=== PATIENT | female | born 1950 | race Caucasian/White ===

== ENCOUNTER 2017-09-26 23:40 | Emergency (ER) | payer OTHER ==
--- NOTE | 2017-09-26 23:51 | EDPHY ---
H & P Time Seen by Provider: 09/26/17 23:41 HPI/ROS: HPI The patient presents with episode of ALOC which occurred just prior to arrival. The patient is brought in by paramedics. She called 911 after she awoke on the ground of her apartment. She does admit to drinking about a pt of hard alcohol earlier in the day and taking some of her medications, including trazodone. She says she was walking across her living room toward her computer after lying in bed sleeping for about 2-3 hours and then does not remember what happened. She then awoke on the ground. She denies any complaints currently. Paramedics report that she was unstable and could not walk without assistance out of her apartment. Blood glucose in the field was 150. The patient does have right-sided neck pain and lower back pain currently.. REVIEW OF SYSTEMS Constitutional: No fever, no chills. Eyes: No discharge. ENT: No sore throat. Cardiovascular: No chest pain, no palpitations. Respiratory: No cough, no shortness of breath. Gastrointestinal: No abdominal pain, no vomiting. Genitourinary: No hematuria. Musculoskeletal: No back pain. Skin: No rashes. Neurological: No headache. PMHx: Hypertension, hypothyroid, history of spinal stenosis Soc Hx: Lives in an apartment, previously worked for [employer], alcohol use PHYSICAL General Appearance: Alert, no distress Eyes: Pupils equal and round no pallor or injection ENT, Mouth: Mucous membranes moist Respiratory: There are no retractions, lungs are clear to auscultation Cardiovascular: Regular rate and rhythm Gastrointestinal: Abdomen is soft and non-tender, no masses, bowel sounds normal Neurological: A&O, moves all extremities Skin: Warm and dry, abrasion which is 2 cm to right elbow Musculoskeletal: Neck is supple, tender bilaterally throughout her cervical spine, she has midline lumbar spinal tenderness Extremities: symmetrical, full range of motion Psychiatric: Patient is oriented X 3, there is no agitation Source: Patient, EMS Exam Limitations: Intoxication - Personal History Tetanus Vaccine Date: 2 years ago - Medical/Surgical History Hx Asthma: No Hx Chronic Respiratory Disease: No Hx Diabetes: No Hx Cardiac Disease: No Hx Renal Disease: No Hx Cirrhosis: No Hx Alcoholism: No Hx HIV/AIDS: No Hx Splenectomy or Spleen Trauma: No Other PMH: HTN, hypothyroid, anxiety, esophageal ulcer, spinal stenosis w multiple back surgeries - Social History Smoking Status: Current every day smoker Constitutional: Initial Vital Signs Temperature (C) 36.6 C 09/26/17 23:48 Heart Rate 86 09/26/17 23:48 Respiratory Rate 16 09/26/17 23:48 Blood Pressure 178/112 H 09/26/17 23:48 O2 Sat (%) 96 09/26/17 23:48 O2 Delivery Mode Room Air Allergies/Adverse Reactions: No Known Allergies Allergy (Unverified 09/26/17 23:46) Home Medications: Medication Instructions Recorded Dexamethasone [Decadron 0.5 mg (*)] 0.25 mg PO DAILY 01/02/14 Hydroxyzine Pamoate [Vistaril] 25 mg PO HS 01/02/14 Levothyroxine [Synthroid 75 mcg 75 mcg PO DAILY 01/02/14 (*)] Ramipril [Altace 2.5mg (*)] 2.5 mg PO DAILY 01/02/14 Methylphenidate HCl [Ritalin 20mg 20 mg PO DAILY 03/25/14 (*)] traZODone 09/26/17 Medical Decision Making - Diagnostics EKG Interpretation: EKG: Complete interpretation has been separately recorded in the [employer] archive. Summary impression: Normal sinus rhythm with 1 PVC Imaging Results: CT C-spine shows no acute fracture, discussed with Dr. Witt of Radiology. Lumbar spine two view plain films show no obvious acute fracture, hardware in place, interpreted by me, radiology interpretation is pending. AP pelvis demonstrates no fracture, interpreted by me, radiology interpretation is pending. Imaging: I viewed and interpreted images myself Differential Diagnosis: This is a 66-year-old female with history of alcohol abuse who presents brought in by ambulance after a fall which occurred setting of alcohol intoxication. She was in bed, got up quickly and walked across the room and then awoke on the ground. She felt lightheaded before the episode. She now denies any complaints except for neck pain. She did not hit her head. She has not had any vomiting, headache, vision changes, behavioral changes. In the emergency department, CT of her cervical spine was performed and demonstrated no acute injuries. Cervical collar was removed by me. Labs were checked and were relatively unremarkable except for alcohol level 300. The patient was monitored in the emergency department for several hours until she was clinically sober. She denied any complaints for the remainder of her stay. She was able to walk with a steady gait and will be discharged home. Differential diagnosis includes alcohol intoxication, syncope, cervical spinal fracture, electrolyte disturbance, polysubstance abuse. - Data Points Laboratory Results: Laboratory Results 09/27/17 00:34 09/27/17 01:26 09/27/17 09/27/17 09/27/17 04:30 01:26 01:00 WBC RBC Hgb Hct MCV MCH MCHC RDW Plt Count MPV Neut % (Auto) Lymph % (Auto) [place] % (Auto) Eos % (Auto) Baso % (Auto) Nucleat RBC Rel Count Absolute Neuts (auto) Absolute Lymphs (auto) Absolute Monos (auto) Absolute Eos (auto) Absolute Basos (auto) Absolute Nucleated RBC Immature Gran % Immature Gran # Sodium 151 mEq/L H mEq/L TNP (134-144) Potassium 3.9 mEq/L mEq/L TNP (3.5-5.2) Chloride 106 mEq/L mEq/L TNP (97-110) Carbon Dioxide 27 mEq/l mEq/l TNP (22-31) Anion Gap 18 mEq/L H mEq/L TNP (8-16) BUN 10 mg/dL mg/dL TNP (7-23) Creatinine 0.5 mg/dL L mg/dL TNP (0.6-1.0) Estimated GFR > 60 TNP Glucose 111 mg/dL H mg/dL TNP (70-100) Calcium 9.4 mg/dL mg/dL TNP (8.5-10.4) Total Bilirubin 0.6 mg/dL mg/dL TNP (0.1-1.4) AST 91 IU/L H IU/L TNP (14-46) ALT 54 IU/L H IU/L TNP (9-52) Alkaline Phosphatase 70 IU/L IU/L TNP (38-126) Total Protein 7.4 g/dL g/dL TNP (6.3-8.2) Albumin 4.1 g/dL g/dL TNP (3.5-5.0) Urine Color YELLOW Urine Appearance HAZY Urine pH 5.0 (5.0-7.5) Ur Specific [place] 1.020 (1.002-1.030) Urine Protein NEGATIVE (NEGATIVE) Urine Ketones NEGATIVE (NEGATIVE) Urine Blood NEGATIVE (NEGATIVE) Urine Nitrate NEGATIVE (NEGATIVE) Urine Bilirubin NEGATIVE (NEGATIVE) Urine Urobilinogen 2.0 EU H EU (0.2-1.0) Ur Leukocyte Esterase NEGATIVE (NEGATIVE) Urine Glucose NEGATIVE (NEGATIVE) Urine Opiates Screen NEGATIVE (NEGATIVE) Urine Barbiturates NEGATIVE (NEGATIVE) Ur Phencyclidine Scrn NEGATIVE (NEGATIVE) Ur Amphetamine Screen NEGATIVE (NEGATIVE) U Benzodiazepines Scrn NEGATIVE (NEGATIVE) Urine Cocaine Screen NEGATIVE (NEGATIVE) U Marijuana (THC) Screen NEGATIVE (NEGATIVE) Ethyl Alcohol 315 mg/dL H mg/dL TNP (0-10) 09/27/17 09/27/17 00:34 00:34 WBC 5.42 10^3/uL 10^3/uL (3.80-9.50) RBC 5.16 10^6/uL 10^6/uL (4.18-5.33) Hgb 17.3 g/dL H g/dL (12.6-16.3) Hct 49.3 % H % (38.0-47.0) MCV 95.5 fL fL (81.5-99.8) MCH 33.5 pg pg (27.9-34.1) MCHC 35.1 g/dL g/dL (32.4-36.7) RDW 11.8 % % (11.5-15.2) Plt Count 205 10^3/uL 10^3/uL (150-400) MPV 9.3 fL fL (8.7-11.7) Neut % (Auto) 34.4 % L % (39.3-74.2) Lymph % (Auto) 54.2 % H % (15.0-45.0) [place] % (Auto) 7.4 % % (4.5-13.0) Eos % (Auto) 1.7 % % (0.6-7.6) Baso % (Auto) 1.7 % % (0.3-1.7) Nucleat RBC Rel Count 0.0 % % (0.0-0.2) Absolute Neuts (auto) 1.87 10^3/uL 10^3/uL (1.70-6.50) Absolute Lymphs (auto) 2.94 10^3/uL 10^3/uL (1.00-3.00) Absolute Monos (auto) 0.40 10^3/uL 10^3/uL (0.30-0.80) Absolute Eos (auto) 0.09 10^3/uL 10^3/uL (0.03-0.40) Absolute Basos (auto) 0.09 10^3/uL 10^3/uL (0.02-0.10) Absolute Nucleated RBC 0.00 10^3/uL 10^3/uL (0-0.01) Immature Gran % 0.6 % % (0.0-1.1) Immature Gran # 0.03 10^3/uL 10^3/uL (0.00-0.10) Sodium TNP Potassium TNP Chloride TNP Carbon Dioxide TNP Anion Gap TNP BUN TNP Creatinine TNP Estimated GFR TNP Glucose TNP Calcium TNP Total Bilirubin TNP AST TNP ALT TNP Alkaline Phosphatase TNP Total Protein TNP Albumin TNP Urine Color Urine Appearance Urine pH Ur Specific [place] Urine Protein Urine Ketones Urine Blood Urine Nitrate Urine Bilirubin Urine Urobilinogen Ur Leukocyte Esterase Urine Glucose Urine Opiates Screen Urine Barbiturates Ur Phencyclidine Scrn Ur Amphetamine Screen U Benzodiazepines Scrn Urine Cocaine Screen U Marijuana (THC) Screen Ethyl Alcohol TNP Medications Given: Discontinued Medications Ibuprofen (Motrin) 400 mg PO EDNOW ONE Stop: 09/27/17 01:10 Last Admin: 09/27/17 01:12 Dose: 400 mg Departure - Departure Disposition: Home, Routine, Self-Care Clinical Impression: Neck pain Fall Qualifiers: Encounter type: initial encounter Qualified Code(s): W19.XXXA - Unspecified fall, initial encounter Alcohol intoxication Qualifiers: Complication of substance-induced condition: with delirium Qualified Code(s): F10.921 - Alcohol use, unspecified with intoxication delirium Condition: Good Instructions: Fall Prevention for Older Adults (ED), Alcohol Intoxication (ED) Additional Instructions: Please follow-up with your regular doctor in 1-2 days. You need to decrease your alcohol use.
--- NOTE | 2017-09-27 00:24 | CPEKG ---
Heart Rate: 76 RR Interval: 789 P-R Interval: 156 QRSD Interval: 78 QT Interval: 404 QTC Interval: 455 P Hitchcock: 44 QRS Hitchcock: 63 T Wave Hitchcock: 51 EKG Severity - OTHERWISE NORMAL ECG - EKG Impression: SINUS RHYTHM EKG Impression: VENTRICULAR PREMATURE COMPLEX Electronically Signed By: Dinorah Salinas 27-Sep-2017 07:28:18
[2017-09-27 00:44] VITALS: RESP 18
[2017-09-27 00:49] LABS: PLATELET COUNT 205 10^3/uL (150-400)
[2017-09-27] MEDS ORDERED: IBUPROFEN 200 MG TAB PO ONE (01:08)
[2017-09-27] MEDS ORDERED: IBUPROFEN 600 MG TAB PO ONE (01:09)
[2017-09-27 04:21] VITALS: O2SAT 97
[2017-09-27 06:38] VITALS: BP 145/94; PULSE 86; TEMP 98.1
== END 2017-09-27 06:38 | disposition home or self-care (01) ==
LOC: EDUNIT#
DX: S19.9XXA Unspecified injury of neck, initial encounter (principal); F10.921 Alcohol use, unspecified with intoxication delirium; I10 Essential (primary) hypertension; F17.200 Nicotine dependence, unspecified, uncomplicated; W19.XXXA Unspecified fall, initial encounter; Y92.038 Other place in apartment as the place of occurrence of the external cause; Y93.01 Activity, walking, marching and hiking
CPT/HCPCS: 80305; G0480

== ENCOUNTER 2019-02-16 21:36 | Emergency (ER) | payer OTHER, MEDICAID ==
--- NOTE | 2019-02-16 21:45 | EDPHY ---
H & P Source: Patient Exam Limitations: No limitations - Personal History Tetanus Vaccine Date: 2 years ago - Medical/Surgical History Hx Asthma: No Hx Chronic Respiratory Disease: No Hx Diabetes: No Hx Cardiac Disease: No Hx Renal Disease: No Hx Cirrhosis: No Hx Alcoholism: No Hx HIV/AIDS: No Hx Splenectomy or Spleen Trauma: No Other PMH: HTN, hypothyroid, anxiety, esophageal ulcer, spinal stenosis w multiple back surgeries - Family History Significant Family History: No pertinent family hx - Social History Smoking Status: Current every day smoker Alcohol Use: Heavy Drug Use: None Time Seen by Provider: 02/16/19 21:37 HPI/ROS: CHIEF COMPLAINT: Intoxication HISTORY OF PRESENT ILLNESS: Patient is a 68-year-old female who is brought by EMS for intoxication. She reportedly called 911 but hung up. They were dispatched to her home any ways and they found her intoxicated. Initially she complained of shortness of breath but later denied this and reported multiple other complaints. She tells me that she has a history of a psychiatric disorder that they cannot figure out. She does admit to drinking heavily today. She is saturating 95% on room air and is stable vital signs. She lives alone in an apartment. Severity: Moderate Modifying factors: None REVIEW OF SYSTEMS: Constitutional: denies: chills, fever, recent illness, recent injury EENTM: denies: blurred vision, double vision, nose congestion Respiratory: See HPI Cardiac: denies: chest pain, irregular heart rate, lightheadedness, palpitations Gastrointestinal/Abdominal: denies: abdominal pain, diarrhea, nausea, vomiting, blood streaked stools Genitourinary: denies: dysuria, frequency, hematuria, pain Musculoskeletal: denies: joint pain, muscle pain Skin: denies: lesions, rash, jaundice, bruising Neurological: denies: headache, numbness, paresthesia, tingling, dizziness, weakness Hematologic/Lymphatic: denies: blood clots, easy bleeding, easy bruising Immunologic/allergic: denies: HIV/AIDS, transplant 10 systems reviewed and negative except as noted EXAM: GENERAL: Intoxicated, alert, answers questions appropriately HEAD: Atraumatic, normocephalic. EYES: Pupils equal round and reactive to light, extraocular movements intact, sclera anicteric, conjunctiva are normal. ENT: TMs normal, nares patent, oropharynx clear without exudates. Moist mucous membranes. NECK: Normal range of motion, supple without lymphadenopathy or JVD. LUNGS: Breath sounds clear to auscultation bilaterally and equal. No wheezes rales or rhonchi. HEART: Regular rate and rhythm without murmurs, rubs or gallops. ABDOMEN: Soft, nontender, normoactive bowel sounds. No guarding, no rebound. No masses appreciated. BACK: No CVA tenderness, no spinal tenderness, step-offs or deformities EXTREMITIES: Normal range of motion, no pitting or edema. No clubbing or cyanosis. NEUROLOGICAL: Cranial nerves II through XII grossly intact. Normal speech, normal gait. 5/5 strength, normal movement in all extremities, normal sensation , PSYCH: Normal mood, normal affect. SKIN: Warm, dry, normal turgor, no visible rashes or lesions. (Jean Pierre Cohen) Constitutional: Initial Vital Signs Temperature (C) 37.0 C 02/16/19 21:42 Heart Rate 90 02/16/19 21:42 Respiratory Rate 18 02/16/19 21:42 Blood Pressure 148/97 H 02/16/19 21:42 O2 Sat (%) 91 L 02/16/19 21:42 O2 Delivery Mode Room Air O2 (L/minute) 2 Allergies/Adverse Reactions: No Known Allergies Allergy (Unverified 09/26/17 23:46) Home Medications: Medication Instructions Recorded Dexamethasone [Decadron 0.5 mg (*)] 0.25 mg PO DAILY 01/02/14 Hydroxyzine Pamoate [Vistaril] 25 mg PO HS 01/02/14 Levothyroxine [Synthroid 75 mcg 75 mcg PO DAILY 01/02/14 (*)] Ramipril [Altace 2.5mg (*)] 2.5 mg PO DAILY 01/02/14 Methylphenidate HCl [Ritalin 20mg 20 mg PO DAILY 03/25/14 (*)] traZODone 09/26/17 Medical Decision Making ED Course/Re-evaluation: 0611: Patient ambulated well to the bathroom, clinically sober. She states she drank too much vodka last night. She is now sober answers questions appropriately denies any complaints. She walked to the bathroom without difficulty. P.o. Challenge. She is requesting discharge. (Eyad Dorsey) 10:50 p.m. the patient is sleeping comfortably. She has no complaints at this time. She does desaturate slightly while sleeping. Will continue to observe. Care transferred to Dr. Dorsey at shift change. (Jean Pierre Cohen) Differential Diagnosis: Partial list of the Differential diagnosis considered include but were not limited to; intoxication, psychosis, depression and although unlikely based on the history and physical exam, I also considered COPD exacerbation, pneumonia, infection. (Jean Pierre Cohen) Departure - Departure Disposition: Home, Routine, Self-Care Clinical Impression: Alcohol intoxication Qualifiers: Complication of substance-induced condition: uncomplicated Qualified Code(s): F10.920 - Alcohol use, unspecified with intoxication, uncomplicated Condition: Fair Instructions: Alcohol Intoxication (ED) Referrals: Patient,NotPresent [Unknown] - As per Instructions [facility],. [Clinic] - As per Instructions
[2019-02-17 06:24] VITALS: BP 155/94
== END 2019-02-17 06:24 | disposition home or self-care (01) ==
LOC: EDUNIT#
DX: F10.920 Alcohol use, unspecified with intoxication, uncomplicated (principal); I10 Essential (primary) hypertension; E03.9 Hypothyroidism, unspecified